=== PATIENT | male | born 1975 | race Caucasian/White ===

== ENCOUNTER 2022-12-03 16:10 | Emergency (ER) | payer BC ==
[~2022-12-03] VITALS: Ht 177.8 cm; Wt 125.0 kg
[2022-12-03] MEDS ORDERED: TETanus/Pertussis (Acell)/Diphther VAC/PF (Tdap-Adult) 0.5ml syringe IMVAC ONE (17:25)
== END 2022-12-03 17:54 | disposition home or self-care (01) ==
LOC: ER 16:11
DX: S61.231A Puncture wound without foreign body of left index finger without damage to nail, initial encounter (principal); Z72.89 Other problems related to lifestyle; W55.01XA Bitten by cat, initial encounter; Y93.89 Activity, other specified; Y92.89 Other specified places as the place of occurrence of the external cause; Y99.8 Other external cause status
CPT/HCPCS: 90471; 90715; 99283